=== PATIENT | female | born 1995 | race Two or more races ===

== ENCOUNTER 2019-02-23 13:48 | Emergency (ER) | payer BC ==
[2019-02-23 13:52] VITALS: BP 116/61
[2019-02-23] MEDS ORDERED: IBUPROFEN 800 MG TABLET PO ONE (13:56)
--- NOTE | 2019-02-23 13:57 | ER Document Report ---
ED Medical Screen (RME) - General Chief Complaint: Low Back Pain Stated Complaint: BACK PAIN Time Seen by Provider: 02/23/19 13:51 Mode of Arrival: Ambulatory Information source: Patient Notes: 23-year-old female presented to ED for complaint of low back pain. She states she came home from work and she was fine sitting at the [employer] many to go out and when she went to get up she had sudden pain to the right side of her back. She states she took some Tylenol and it helped some but did not really get rid of it. She states her last menstrual period was 02/13/2019. States she does not smoke drinks on weekends does not use drugs. Patient is alert oriented respirations regular nonlabored speaking in full sentences walks with even steady gait. I have greeted and performed a rapid initial assessment of this patient. A comprehensive ED assessment and evaluation of the patient, analysis of test results and completion of medical decision making process will be conducted by an additional ED providers. - Related Data Allergies/Adverse Reactions: Sulfa (Sulfonamide Antibiotics) Allergy (Verified 02/23/19 13:55) Past Medical History Skin Medical History: Comment Only Hx MRSA - MRSA 01/29 ABDOMEN
--- NOTE | 2019-02-23 14:35 | RADIOLOGY REPORT (SQ) ---
EXAM DESCRIPTION: L SPINE WHOLE COMPLETED DATE/TIME: 02/23/2019 2:26 pm REASON FOR STUDY: Low back pain COMPARISON: None. NUMBER OF VIEWS: Five views including obliques. TECHNIQUE: AP, lateral, oblique, and sacral radiographic images acquired of the lumbar spine. LIMITATIONS: None. FINDINGS: MINERALIZATION: Normal. SEGMENTATION: Normal. No transitional anatomy. ALIGNMENT: Normal. VERTEBRAE: Maintained height. No fracture or worrisome bone lesion. DISCS: Preserved height. No significant osteophytes or end plate irregularity. POSTERIOR ELEMENTS: Pedicles and facets are intact. No pars defect or posterior arch defects. HARDWARE: None in the spine. PARASPINAL SOFT TISSUES: Normal. PELVIS: Intact as visualized. No fractures or worrisome bone lesions. SI joints intact. OTHER: IUD artifact in the pelvis. IMPRESSION: NORMAL 5 VIEW LUMBAR SPINE. TECHNICAL DOCUMENTATION: JOB ID: [id number] [employer]- All Rights Reserved Reading location - IP/workstation name: [email or web address]
[2019-02-23] MEDS ORDERED: METHOCARBAMOL 500 MG TABLET PO ONE (14:46)
--- NOTE | 2019-02-23 14:50 | ER Document Report ---
HPI - HPI Time Seen by Provider: 02/23/19 13:51 Pain Level: 1 Context: Patient is a 23-year-old female presents emergency department with a chief complaint of right lower back pain. Patient reports last night she was sitting on the ground when she attempted to get up and developed right lower leg back pain. Patient states this is nonradiating. Patient reports that she did take Tylenol which did seem to help with her pain but it is still present. Patient reports the pain was worse this morning. Patient states she has not used warm or cool compresses. Patient states there is no numbness or tingling down her lower extremities. Patient denies loss of bowel or bladder. Patient reports the pain is worse with movement. Past Medical History - General Information source: Patient - Social History Smoking Status: Current Every Day Smoker Chew tobacco use (# tins/day): No Frequency of alcohol use: Social Drug Abuse: None Lives with: Family Family History: None Patient has suicidal ideation: No Patient has homicidal ideation: No - Past Medical History Cardiac Medical History: Reports: None Pulmonary Medical History: Reports: None EENT Medical History: Reports: None Neurological Medical History: Reports: None Endocrine Medical History: Reports: None Renal/ Medical History: Reports: None Malignancy Medical History: Reports: None GI Medical History: Reports: None Musculoskeletal Medical History: Reports None Skin Medical History: Reports None, Comment Only Hx MRSA - MRSA 01/29 ABDOMEN Psychiatric Medical History: Reports: None Traumatic Medical History: Reports: None Infectious Medical History: Reports: None Surgical Hx: Negative Vertical Provider Document - CONSTITUTIONAL Agree With Documented VS: Yes Exam Limitations: No Limitations General Appearance: No Apparent Distress - HEENT HEENT: Atraumatic, Normocephalic, PERRLA - NECK Neck: Normal Inspection - RESPIRATORY Respiratory: Breath Sounds Normal, No Respiratory Distress - CARDIOVASCULAR Cardiovascular: Regular Rate, Regular Rhythm - GI/ABDOMEN Gastrointestinal: Abdomen Soft, Abdomen Non-Tender, Normal Bowel Sounds - BACK Back: Normal Inspection Notes: Patient has very minimal lumbar midline tenderness. Patient does have a left and right paraspinal lumbar tenderness. 5 out of 5 strength both distally and proximally bilateral lower extremities. 2+ patellar reflexes bilaterally. No clonus. Sensation grossly intact in the bilateral lower extremities. Patient is able to ambulate without difficulty. - MUSCULOSKELETAL/EXTREMETIES Musculoskeletal/Extremeties: FROM - NEURO Level of Consciousness: Awake, Alert, Appropriate - DERM Integumentary: Warm, Dry, No Rash Course - Vital Signs Vital signs: Temp Pulse Resp BP Pulse Ox 97.8 F 88 18 116/61 98 02/23/19 13:51 02/23/19 13:51 02/23/19 13:51 02/23/19 13:51 02/23/19 13:51 - Diagnostic Test Radiology reviewed: Reports reviewed Radiology results interpreted by me: 02/23/19 14:47 Lumbar Spine X-Ray 02/23/19 13:55 IMPRESSION: NORMAL 5 VIEW LUMBAR SPINE. Discharge - Discharge Clinical Impression: Muscle strain Low back pain Qualifiers: Chronicity: acute Back pain laterality: right Sciatica presence: without sciatica Qualified Code(s): M54.5 - Low back pain Condition: Stable Disposition: HOME, SELF-CARE Additional Instructions: Today using the emergency department for right lower back pain. It does appear that you have a muscle strain. We did obtain an x-ray of your lower back which did not show any acute abnormality of your lower spine. The treatment for a muscle sprain is typically rest, ice, anti-inflammatories and sometimes muscle relaxers. Please take ibuprofen or naproxen as needed for pain. You are also being prescribed a muscle relaxer. Do not drive or operate heavy machinery while on this medication as it can make you drowsy. Do not drink alcohol on this medication. Muscle Strain You have strained a muscle -- torn the fibers within the muscle. This often occurs with strenuous exertion, or during an injury that suddenly stretches the muscle. The seriousness of a strain varies. Some strains heal within days, others cause problems for months. X-rays cannot show a muscle strain. X-rays are taken only if symptoms suggest that a fracture could be present. The usual treatment of a muscle strain is rest and ice packs. Sometimes, a sling, splint, or crutches may be necessary to rest the muscle. The muscle can be used again once pain subsides. Severe strains require a special exercise and stretching program to prevent permanent stiffness and disability. Your doctor will advise you if this will be necessary. Call the doctor immediately if pain or swelling becomes severe, or if numbness or discoloration develop. Muscle Relaxers Muscle relaxing medications are usually prescribed for acute muscle spasm or injury to the neck and back. They are often combined with antiinflammatory pain medication for increased relief. You may stop the muscle relaxer when the pain and stiffness have improved. Start the medication again if spasms recur. Muscle relaxers may cause drowsiness, especially with the first dose. Do not operate machinery or drive while under the effects of the medication. Most muscle relaxers last up to 24 hours. Do not combine the medication with alcohol. Prescriptions: Ibuprofen [Motrin 800 mg Tablet] 800 mg PO Q8H PRN #30 tab PRN Reason: Methocarbamol [Robaxin 500 mg Tablet] 1,000 mg PO TID PRN #15 tablet PRN Reason: Forms: Return to Work
== END 2019-02-23 15:09 | disposition home or self-care (01) ==
LOC: ER 13:48
DX: S39.012A Strain of muscle, fascia and tendon of lower back, initial encounter (principal); X58.XXXA Exposure to other specified factors, initial encounter; F17.200 Nicotine dependence, unspecified, uncomplicated; Z86.14 Personal history of Methicillin resistant Staphylococcus aureus infection
CPT/HCPCS: 72110; 99283